=== PATIENT | female | born 1955 | race Caucasian/White ===

== ENCOUNTER → 2023-10-14 12:55 | Outpatient (REF) | payer OTHER, SELFPAY | LOC: WDC 12:55 | PROVIDERS: ATTENDING PHYSICIAN Student in an Organized Health Care Education/Training Program | DX: Z12.31 Encounter for screening mammogram for malignant neoplasm of breast (principal) | CPT/HCPCS: 77063; 77067 ==

== ENCOUNTER → 2023-10-21 08:23 | Outpatient (REF) | payer OTHER, SELFPAY | LOC: WDC 08:23 | PROVIDERS: ATTENDING PHYSICIAN Student in an Organized Health Care Education/Training Program | DX: R92.8 Other abnormal and inconclusive findings on diagnostic imaging of breast (principal) | CPT/HCPCS: 76642 ==

== ENCOUNTER → 2023-11-18 13:05 | Outpatient (REF) | payer OTHER, SELFPAY | LOC: RAD 13:05 | PROVIDERS: ATTENDING PHYSICIAN Student in an Organized Health Care Education/Training Program | DX: Z00.00 Encounter for general adult medical examination without abnormal findings (principal); M81.0 Age-related osteoporosis without current pathological fracture; M25.551 Pain in right hip | CPT/HCPCS: 73502; 77080 ==

== ENCOUNTER 2023-12-14 08:14 | Outpatient (RCR) | payer OTHER, SELFPAY | END 2023-12-14 23:59 | disposition home or self-care (01) | LOC: RPT 08:14 | PROVIDERS: ATTENDING PHYSICIAN Student in an Organized Health Care Education/Training Program | DX: M16.11 Unilateral primary osteoarthritis, right hip (principal); M76.31 Iliotibial band syndrome, right leg; R26.89 Other abnormalities of gait and mobility | CPT/HCPCS: 97110; 97162 ==

== ENCOUNTER 2024-01-14 10:58 | Outpatient (RCR) | payer OTHER, SELFPAY | END 2024-01-14 23:59 | disposition home or self-care (01) | LOC: RPT 10:58 | PROVIDERS: ATTENDING PHYSICIAN Student in an Organized Health Care Education/Training Program | DX: M16.11 Unilateral primary osteoarthritis, right hip (principal); M76.31 Iliotibial band syndrome, right leg; R26.89 Other abnormalities of gait and mobility; Z73.6 Limitation of activities due to disability | CPT/HCPCS: 97010; 97110; 97140 ==

== ENCOUNTER 2024-01-24 14:19 | Outpatient (RCR) | payer OTHER, SELFPAY | END 2024-01-24 23:59 | disposition home or self-care (01) | LOC: RPT 14:19 | PROVIDERS: ATTENDING PHYSICIAN Student in an Organized Health Care Education/Training Program | DX: M16.11 Unilateral primary osteoarthritis, right hip (principal); M76.31 Iliotibial band syndrome, right leg; R26.89 Other abnormalities of gait and mobility; R26.2 Difficulty in walking, not elsewhere classified; M62.81 Muscle weakness (generalized); Z73.6 Limitation of activities due to disability; M54.9 Dorsalgia, unspecified | CPT/HCPCS: 97110 ==

== ENCOUNTER → 2024-10-17 13:36 | Outpatient (REF) | payer OTHER, SELFPAY | LOC: WDC 13:36 | PROVIDERS: ATTENDING PHYSICIAN Emergency Medicine | DX: Z12.31 Encounter for screening mammogram for malignant neoplasm of breast (principal) | CPT/HCPCS: 77063; 77067 ==

== ENCOUNTER → 2024-10-25 09:20 | Outpatient (REF) | payer OTHER, SELFPAY | LOC: WDC 09:20 | PROVIDERS: ATTENDING PHYSICIAN Emergency Medicine | DX: R92.8 Other abnormal and inconclusive findings on diagnostic imaging of breast (principal) | CPT/HCPCS: 76642 ==

== ENCOUNTER → 2024-10-27 14:34 | Outpatient (REF) | payer OTHER, SELFPAY | LOC: HWRCS 14:34 | PROVIDERS: ATTENDING PHYSICIAN Internal Medicine Cardiovascular Disease; FAMILY PHYSICIAN Emergency Medicine | DX: I34.0 Nonrheumatic mitral (valve) insufficiency (principal); I34.1 Nonrheumatic mitral (valve) prolapse | CPT/HCPCS: 93306 ==

== ENCOUNTER → 2025-03-23 06:09 | Outpatient (REF) | payer OTHER, SELFPAY ==
[2025-03-23 10:15] LABS: Glycohemoglobin (HgbA1c) 6.5 % (4.0-5.6)
[2025-03-23 13:28] LABS: Vitamin D, 25-OH*** 49.9 ng/mL (30-80)
[2025-03-23 13:42] LABS: TSH 6.57 uIU/ml (0.47-4.68)
[2025-03-23 15:53] LABS: ALT (SGPT) 22 U/L (0-35); AST (SGOT) 32 U/L (14-36); Albumin 4.4 g/dl (3.5-5.0); Alkaline Phosphatase 40 U/L (38-126); Blood Urea Nitrogen 21 mg/dl (7-17); Calcium 9.2 mg/dl (8.4-10.2); Carbon Dioxide 29 mmol/L (22-30); Chloride 98 mmol/L (98-107); Glucose 126 mg/dl (70-99); HDL Cholesterol 96 mg/dl; LDL Cholesterol, Calculated 92 mg/dl; Potassium 4.5 mmol/L (3.5-5.1); Sodium 132 mmol/L (135-145); Total Protein 6.9 g/dl (6.3-8.2); Very Low Density Lipoprotein 7 mg/dl (0-30); eGFR > 60.00
== END ==
LOC: HWLAB 06:09
PROVIDERS: ATTENDING PHYSICIAN Internal Medicine Endocrinology, Diabetes & Metabolism; FAMILY PHYSICIAN Emergency Medicine
DX: E10.65 Type 1 diabetes mellitus with hyperglycemia (principal); E04.2 Nontoxic multinodular goiter; E55.9 Vitamin D deficiency, unspecified; E78.5 Hyperlipidemia, unspecified
CPT/HCPCS: 36415; 80053; 80061; 82306; 83036; 84443

== ENCOUNTER → 2025-07-03 06:04 | Outpatient (REF) | payer OTHER, SELFPAY ==
[2025-07-03 10:43] LABS: ALT (SGPT) 27 U/L (0-35); AST (SGOT) 32 U/L (14-36); Albumin 4.1 g/dl (3.5-5.0); Alkaline Phosphatase 55 U/L (38-126); Blood Urea Nitrogen 20 mg/dl (7-17); Calcium 8.8 mg/dl (8.4-10.2); Chloride 96 mmol/L (98-107); Glucose 147 mg/dl (70-99); HDL Cholesterol 78 mg/dl; LDL Cholesterol, Calculated 67 mg/dl; Potassium 4.2 mmol/L (3.5-5.1); Sodium 133 mmol/L (135-145); Total Protein 6.7 g/dl (6.3-8.2); Very Low Density Lipoprotein 7 mg/dl (0-30); eGFR > 60.00
[2025-07-03 11:02] LABS: Carbon Dioxide 32 mmol/L (22-30); Glycohemoglobin (HgbA1c) 6.5 % (4.0-5.9)
[2025-07-03 11:03] LABS: Vitamin D, 25-OH*** 54.8 ng/mL (30-80)
[2025-07-03 11:17] LABS: TSH 5.02 uIU/ml (0.47-4.68)
== END ==
LOC: HWLAB 06:04
PROVIDERS: ATTENDING PHYSICIAN Internal Medicine Endocrinology, Diabetes & Metabolism; FAMILY PHYSICIAN Student in an Organized Health Care Education/Training Program; REFERRING PHYSICIAN Internal Medicine Cardiovascular Disease
DX: E78.49 Other hyperlipidemia (principal); E03.9 Hypothyroidism, unspecified; E13.9 Other specified diabetes mellitus without complications; E55.9 Vitamin D deficiency, unspecified
CPT/HCPCS: 36415; 80053; 80061; 82306; 83036; 84443